=== PATIENT | female | born 1995 | race Caucasian/White ===

== ENCOUNTER 2017-11-06 22:45 | Inpatient (IN) ==
[2017-11-06] MEDS ORDERED: Naloxone 0.4 MG/ML INJ IVP PRN (22:48)
[2017-11-06] MEDS ORDERED: *HR* Nalbuphine 20 MG/ML AMPUL IVP PRN (22:48)
[2017-11-06] MEDS ORDERED: Ondansetron 4 MG/2 ML VIAL IVP PRN (22:48)
[2017-11-06] MEDS ORDERED: Metoclopramide 10 MG/2 ML VIAL IVP PRN (22:48)
[2017-11-06] MEDS ORDERED: Famotidine 20 MG/2 ML VIAL IVP PRN (22:48)
[2017-11-06] MEDS ORDERED: Ringers Solution, Lactated 1,000 ML IVC SCH (23:00)
[2017-11-06] MEDS ORDERED: Ringers Solution, Lactated 1,000 ML ONE (23:01)
[2017-11-06 23:08] LABS: Hemoglobin 11.9 g/dL (11.5-15.4); Mean Corpuscular Volume 82.5 fL (83.0-100.0); Red Cell Distribution Width 13.2 % (11.5-14.5)
[2017-11-06 23:10] LABS: Basophils # 0.1 K/mcL (0.0-0.2); Basophils % 0.5 %; Eosinophils # 0.2 K/mcL (0.0-0.6); Eosinophils % 1.6 %; Hematocrit 35.8 % (35.3-44.9); Immature Granulocytes % 0.6 % (0-4); Immature Platelets 37.1 % (1.1-6.1); Lymphocytes # 2.9 K/mcL (0.6-4.6); Mean Corpuscular HGB Conc 33.2 g/dL (31.6-35.5); Mean Corpuscular Hemoglobin 27.4 pg (28.0-33.3); Monocytes # 0.7 K/mcL (0.0-1.3); Monocytes % 6.3 %; Neutrophils # 7.6 K/mcL (1.6-8.9); Platelet Count 149 K/mcL (140-400); Red Blood Count 4.34 M/mcL (3.82-4.97)
--- NOTE | 2017-11-06 23:13 | OB/GYN History & Physical ---
Date of Encounter: 11/06/17 Time of Encounter: 23:12 Assessment and Plan (1) 38 weeks gestation of Current visit: Yes Status: Acute (2) Polysubstance abuse Current visit: Yes Status: Acute (3) Hepatitis C Current visit: Yes Status: Acute Qualifiers: Viral hepatitis chronicity: chronic Hepatic coma status: with hepatic coma Qualified Code(s): B18.2 - Chronic viral hepatitis C (4) Nicotine addiction Current visit: Yes Status: Acute Qualifiers: Nicotine product type: cigarettes Substance use status: uncomplicated Qualified Code(s): F17.210 - Nicotine dependence, cigarettes, uncomplicated (5) Spontaneous onset of labor Current visit: Yes Status: Acute Admit for expectant management. Consult social human services assistants. Pt wishes to see and hold baby at time of delivery despite adoption plan. Anticipate . History of Present Illness Chief complaint: contractions HPI: Ms. Bryan is a 22 year old female presenting at 38w3d with c/o contractions since last evening that started getting worse around 8pm this evening. She admits to using cocaine last night. She also has a history of herione and methamphetamine use. She is planning to put this baby up for adoption. She also has hepatitis C. She does use by IV route. Medications and Allergies 3 Allergy/AdvReac Type Severity Reaction Status Date / Time No Known Allergies Allergy Verified 11/06/17 23:16 Review of System OB All systems PM: reviewed and no additional remarkable complaints except as stated Exam - Constitutional Constitutional: moderate distress - HEENT HEENT: Mucus Membranes Moist - Lungs Respiratory exam: CTAB - Cardiovascular Cardiovascular exam: RRR, +S1, +S2 - Abdomen Abdomen: Present: gravid, non tender - Extremities Extremities exam: normal inspection - Vagina Vagina: Present: normal moisture - Cervix Dilation: 6 (per RN) - Anus/Rectum Anus/Rectum: Present: normal perianal skin Results Result Diagrams: 11/06/17 22:50 All other labs normal.
[2017-11-06] MEDS ORDERED: Ringers Solution, Lactated 500 ML IVC ONE (23:20)
[2017-11-06] MEDS ORDERED: EPHEDrine 50 MG/ML VIAL IVP PRN (23:20)
[2017-11-06] MEDS ORDERED: Epidural Premix (fent/bupiv) 110 ML EP ONE (23:21)
[2017-11-06] MEDS ORDERED: Epidural Premix (fent/bupiv) 110 ML EP SCH (23:30)
[2017-11-06 23:34] LABS: Large Platelets Present (Not Present); Microcytosis Present (Not Present); Platelet Estimate Normal (Normal)
--- NOTE | 2017-11-06 23:44 | Anesthesia Evaluation PreOp ---
Date of Encounter: 11/06/17 Time of Encounter: 23:41 - Past History Planned Operation: YANDY Cardiac History: Denies any Significant Hx Pulmonary History: Denies Any Significant HX SPARE HAND CARDING History: Denies Any Significant HX Other Medical History: Other (Drug addiction. Active Cocaine and Meth abuse. Last used yesterday. Previous Heroine abuse. Last used 18 months ago. POSTIVE HEP C.) Anesthesia History: No Prior Anesthetic Complications, Past Anesthesia : Yes Alcohol Use: none Drug use: cocaine, methamphetamine Medications and Allergies 3 Allergy/AdvReac Type Severity Reaction Status Date / Time No Known Allergies Allergy Verified 11/06/17 23:16 - Meds/Allergy Pre-op Review Medications Reviewed: Yes Allergies Reviewed: Yes Beta Blockers on Current Med List: No Anesthesia Results - Labs 11/06/17 22:50 Anesthesia Exam Height: 1.68m Weight: 81kg NPO (# of Hours): 3 Pain Scale: 9 Pain Scale Used: Numeric (1 - 10) - HEENT Pupil (Motor): Pupils equal, EOMI Mallampati: II Teeth: Normal Oral Opening: Greater than 3 - SPARE HAND CARDING LOC: Oriented SPARE HAND CARDING Motor: Normal RUE, Normal LUE, Normal RLE, Normal LLE, Normal Face SPARE HAND CARDING Sensory: Normal: RUE, LUE, RLE, LLE, Face - Cardiac Rhythm: Regular Murmur: None JVD: No Carotid Bruit: No - Pulmonary Breath Sounds: bilateral Clear Respiratory Effort: Symmetrical Anesthesia Assess/Plan ASA Score: 3 (active drug abuse) Modified [place] Scale for Level of Consciousness: Cooperative, oriented, and tranquil Anesthetic Plan: General (plan b), Regional (plan a) Autologous Blood: Yes Monitoring Plan: Standard Monitors
--- NOTE | 2017-11-06 23:45 | Anesthesia Procedures ---
Date of Encounter: 11/06/17 Time of Encounter: 23:44 Procedures: Anesthesia - Epidural/Spinal Patient ID/Chart reviewed: Yes Patient examined: Yes OB Eval: Gestational age: 38.3 OB Eval: : 2 OB Eval: Hx Para: 1 OB Eval: Dilated at (cm): 8 OB Eval: Contractions: Non-stressed pattern Consent Obtained: Yes Supplemental Oxygen: None/Room Air Site Prep: Aseptic Technique, Sterile prep and drape, Povidone-Iodine 1% Patient position: upright Local Anesthetic: Lidocaine 1% Amount of Local Anesthetic used: 3 Touhy Needle Gauge: 18 Touhy Needle Depth (cm): 8 Catheter Depth at Skin (cm): 15 Test Dose (1.5% Lido + Epi): Volume given (mls): 5 Test Dose Result: Negative Loading Dose: Other: 10mls of epidural pharm bag premix solution Loading Dose Administered: Thru Catheter Infusion Med: 0.125% Bupivacaine w/ 2 mcg/ml Fentanyl Infusion Rate (mls/hr): [address]: Tegaderm, Tape Interspace Used: L4-L5 Loss of Resistance (JIA): Yes Blood: No CSF: No Paresthesia: No Procedure: pt tolerated procedure well. no complications. vss. fhr stable. see nursing flowsheet.
--- NOTE | 2017-11-07 01:29 | OB Labor Progress Note ---
Date of Encounter: 11/07/17 Time of Encounter: 01:27 Labor Progress Note - Subjective Subjective: Pt sleeping at this time. - Cervix Cervix: 8/80/-1 - Heart Tones Heart Tones: Category I - [place]: 2-4 minutes - Interventions Interventions: AROM for small amount bloody fluid, fluid is tinged with dark red, old- appearing blood - Plan Plan: Continue to monitor closely. Anticipate .
[2017-11-07 02:11] LABS: Amphetamine Screen,Urine Negative ng/mL (Cutoff=1000); Barbiturate Screen,Urine Negative ng/mL (Cutoff=200); Benzodiazepines Screen,Urine Negative ng/mL (Cutoff=200); Cannabinoid Screen,Urine Negative ng/mL (Cutoff = 50); Cocaine Screen,Urine Negative ng/mL (Cutoff= 300); Opiate Screen,Urine Negative ng/mL (Cutoff=300); Phencyclidine Screen,Urine Negative ng/mL (Cutoff=25)
[2017-11-07] MEDS ORDERED: Oxytocin 20 units/ LR 1000 mL 20 UNIT/1,000 ML BAG IVC ONE (03:57)
--- NOTE | 2017-11-07 05:15 | OB/GYN Procedure Note ---
Delivery - Delivery Date: 11/07/17 Provider: Nadia Cabello (Armen Oakley [facility]) Intrapartum events: meconium (At , cord stained) Delivery induction: none Delivery augmentation: rupture of membranes Delivery monitor: external FHT, external uterine Anesthesia: epidural Estimated Blood Loss: 300 - Infant (s) Infant A Infant Delivery Date: 11/07/17 Delivery Time: 04:51 Presentation: vertex Position: [place] Route of delivery: Gender: Female Viability: Viable Pounds: 6 Ounces: 4 Weight Gram: 2845 kg at 1 minute: 7 at 5 mins: 8 Shoulder Dystocia: not encountered Specimens collected: cord blood Placenta: spontaneous Cord: 3 umbilical vessels (cord draped over shoulder at delivery) - Repair Episiotomy: none Laceration Description: None - Complications Delivery complications: meconium, other (partial abruption) Delivery comments: Called to delivery room for patient complete and +2 station. Under maternal effort, spontaneous vaginal delivery of viable female weighing 6#4oz over intact perineum. to maternal abdomen, cord cut and clamped after pulsation ceased. Cord draped over shoulder at delivery, light meconium fluid noted after delivery of head. Umbilical cord meconium stained. No shoulder dystocia or nuchal cord noted. Spontaneous delivery of intact placenta. EBL 300 mL. All counts correct and complete. Mother and infant stable for 2 hour recovery. - Disposition Mom disposition: stable in LDR disposition: stable in LDR
[2017-11-07] MEDS ORDERED: Oxytocin 20 units/ LR 1000 mL 20 UNIT/1,000 ML BAG IVC SCH (08:52)
[2017-11-07] MEDS ORDERED: Acetaminophen 325 MG TABLET PO PRN (08:52)
[2017-11-07] MEDS ORDERED: Measles/Mumps/Rubella Vacc 0.5 ML VIAL SQ PRN (08:52)
[2017-11-07] MEDS ORDERED: Benzocaine/Menthol 56 GM AEROSOL SPRAY TP PRN (08:52)
[2017-11-07] MEDS: Ibuprofen 600 MG TABLET PO PRN ×2 (10:35→20:49)
[2017-11-07] MEDS: Prenatal Vit/FA 1 EACH TABLET PO SCH (18:01)
[2017-11-07] MEDS ORDERED: Rho Immune Globulin 1,500 UNIT SYRINGE IM ONE (20:38)
[2017-11-08] MEDS ORDERED: Rho Immune Globulin 1,500 UNIT SYRINGE IM ONE (08:30)
--- NOTE | 2017-11-08 09:02 | Discharge Summary ---
Date of Encounter: 11/08/17 Time of Encounter: 08:59 - Discharge Diagnosis (1) Vaginal delivery Priority: Primary Status: Acute Comments: Continue routine care discharge home today Infant 3 day hold for polysubstance abuse Patient to follow in [address] Mann - Discharge Medications Home Medications: Pnv Cmb#21/Iron/Folic Acid [ Complete Caplet] 1 tab PO DAILY 11/07/17 [ History] Allergies/Adverse Reactions: 3 Allergy/AdvReac Type Severity Reaction Status Date / Time No Known Allergies Allergy Verified 11/06/17 23:16 Data Procedures and tests throughout hospitalization: Laboratory Tests 11/06/17 11/06/17 11/07/17 22:50 22:50 01:25 WBC 11.5 H RBC 4.34 Hgb 11.9 Hct 35.8 MCV 82.5 L MCH 27.4 L MCHC 33.2 RDW 13.2 Plt Count 149 MPV TNP Immature Gran % 0.6 Seg Neutrophils % 66.0 Lymphocytes % 25.0 Monocytes % 6.3 Eosinophils % 1.6 Basophils % 0.5 Neutrophils # 7.6 Lymphocytes # 2.9 Monocytes # 0.7 Eosinophils # 0.2 Basophils # 0.1 Platelet Estimate Normal Large Platelets Present A Immature Plt Fraction 37.1 H Microcytosis Present A Urine Opiates Screen Negative Ur Barbiturates Screen Negative Ur Phencyclidine Scrn Negative Ur Amphetamines Screen Negative U Benzodiazepines Scrn Negative Urine Cocaine Screen Negative U Marijuana (THC) Screen Negative Hep Bs Antigen Nonreactive Screen Baby's Blood Type Mother's Blood Type Rhogam Indicated Rhogam Req for Mother 11/07/17 11/07/17 06:25 06:39 WBC RBC Hgb Hct MCV MCH MCHC RDW Plt Count MPV Immature Gran % Seg Neutrophils % Lymphocytes % Monocytes % Eosinophils % Basophils % Neutrophils # Lymphocytes # Monocytes # Eosinophils # Basophils # Platelet Estimate Large Platelets Immature Plt Fraction Microcytosis Urine Opiates Screen Ur Barbiturates Screen Ur Phencyclidine Scrn Ur Amphetamines Screen U Benzodiazepines Scrn Urine Cocaine Screen U Marijuana (THC) Screen Hep Bs Antigen Nonreactive Screen NEGATIVE Baby's Blood Type O RH POSITIVE Mother's Blood Type O RH NEGATIVE Rhogam Indicated YES Rhogam Req for Mother 1 Labs on day of discharge: Labs from last 24 hours 11/07/17 06:25 Screen NEGATIVE Baby's Blood Type O RH POSITIVE Mother's Blood Type O RH NEGATIVE Rhogam Indicated YES Rhogam Req for Mother 1 Date of admission: 11/06/17 22:45 Primary care physician: Yasmin Dobbins CNP Consults: 11/07/17 08:52 Consult to Area Counselor [CONS] Routine Comment: Vaginal delivery, consult needed Consult to A Operator [CONS] Routine Reason for SW Consult: polysubstance abuse, possible adoption Discharging clinician: Ethel Faria Anticipated date of discharge: 11/08/17 - Patient Status Disposition: Home, Self-Care Condition: Good Functional capacity at discharge: independent ambulation - Discharge Instructions Follow Up With: Yasmin Dobbins CNP [Primary Care Provider] - Martell Mann DO [Partnered Physician] - - Diet and Activity Activity: increase activity as tolerated Diet: regular diet Hospital Course Reason for admission: active labor Delivery: Episiotomy: none Other procedures: none complications: none Discharge diagnosis: IUP at term delivered [place] baby: female (bottle feeding) Time Attestation: Total time spent providing and/or coordinating discharge services: Time Spent: Less than 30 minutes Exam - Constitutional Vitals: Temp Pulse Resp BP Pulse Ox 98.1 F 76 16 125/84 99 11/07/17 21:45 11/07/17 21:45 11/07/17 21:45 11/07/17 21:45 11/07/17 21:45 General appearance IM: A&O X 3, pleasant, answers questions appropriately - Respiratory Respiratory exam: Present: CTAB - Cardiovascular Cardiovascular exam IM: Present: RRR, +S1, +S2 - GI/Abdominal GI/Abdominal exam IM: normal bowel sounds - Uterine Tone: Firm Uterus Position: 1 Finger Below Umbilicus, Midline - Extremities Exam Extremities exam IM: Present: full ROM, normal capillary refill, normal inspection - Neurological Exam Neurological exam: alert, oriented X3, reflexes normal
[2017-11-08] MEDS: Prenatal Vit/FA 1 EACH TABLET PO SCH (09:09)
[2017-11-08] MEDS: Ibuprofen 600 MG TABLET PO PRN (09:09)
[2017-11-08 09:22] VITALS: BP 120/82
== END 2017-11-08 11:45 | disposition home or self-care (01) | DRG 560 ==
LOC: 1NENULAB 22:45 → 1NENUOBS 11-07 10:06
PROVIDERS: ADMIT Registered Nurse; ATTEND Registered Nurse